=== PATIENT | female | born 1955 | race Caucasian/White ===

== ENCOUNTER 2016-08-25 11:26 | Day surgery (SDC) | payer BC ==
[2016-08-23 14:54] LABS: BASOPHILS 0.1 %; BASOPHILS ABSOLUTE 0.02 10/3/uL (0.0-0.16); EOSINOPHILS 1.1 %; EOSINOPHILS ABSOLUTE 0.15 10/3/uL (0.0-0.53); HEMATOCRIT 41.9 % (36.0-48.0); HEMOGLOBIN 13.8 g/dL (12.0-16.0); IMMATURE GRANULOCYTES 0.8 %; IMMATURE GRANULOCYTES ABSOLUTE 0.11 10/3/uL (0.0-0.11); LYMPHOCYTES 32.8 %; MANUAL DIFF NO %; MEAN CORPUS HGB CONC 32.9 g/dL (32.0-36.0); MEAN CORPUSCULAR HEMOGLOB 30.6 pg (26.0-34.0); MEAN CORPUSCULAR VOLUME 92.9 fL (80-100); MONOCYTES ABSOLUTE 0.81 10/3/uL (0.21-1.20); NEUTROPHILS 59.2 %; NEUTROPHILS ABSOLUTE 7.94 10/3/uL (2.02-8.40); PLATELET COUNT 220 10/3/uL (150-400); RBC DISTRIBUTION WIDTH 14.6 % (12.0-16.0); RED CELL COUNT 4.51 10/6/uL (4.0-5.6); WHITE BLOOD CELLS 13.4 10/3/uL (4.5-10.5)
[2016-08-23 15:09] LABS: A/G RATIO 0.7 (0.7-1.9); ALBUMIN 3.2 G/DL (3.5-5.0); BUN (BLOOD UREA NITROGEN) 13 MG/DL (6-23); CHLORIDE, SERUM 99 MMOL/L (96-112); CO2 (CARBON DIOXIDE) 31 MMOL/L (24-34); CREATININE 0.96 MG/DL (0.55-1.02); GFR AFRICAN AMERICAN 75 ML/MIN (>=60); GFR NON AFRICAN AMERICAN 64 ML/MIN (>=60); GLOBULIN 4.3 G/DL (2.5-4.1); POTASSIUM, SERUM 4.3 MMOL/L (3.5-5.3); SGOT(AST) 93 U/L (5-40); SGPT(ALT) 85 U/L (5-65); SODIUM, SERUM 137 MMOL/L (135-148); TOTAL BILIRUBIN 0.4 MG/DL (0-1.2); TOTAL PROTEIN 7.5 G/DL (6.0-8.5)
[2016-08-23 15:10] LABS: ALKALINE PHOSPHATASE 169 U/L (45-117); GLUCOSE, SERUM 349 MG/DL (60-99)
--- NOTE | ~2016-08-25 | PREOPHP ---
PreOp History and Physical [address] [address] NAME: MARIBEL WOODS : 57 [place]US : [place] [facility] [place] [id number] AGE: 61 ADM/REG DATE : MR#: [id number] REPORT SERV DATE: 08/25/16 DICTATED BY: VELMA RAMOS III DATE: 08/16/16 REPORT STATUS : Draft TRANSCRIBED BY: MODL DATE: 08/16/16 HISTORY OF PRESENT ILLNESS: This 61-year-old female comes to the operating room for laparoscopic cholecystectomy, possible laparotomy, symptomatic cholelithiasis and cholecystitis. The patient complains of intermittent episodes of epigastric and right upper quadrant abdominal pain. The pain has been associated with nausea and vomiting. The patient has gallstones, felt to have symptomatic cholelithiasis and cholecystitis. The patient comes to the operating room now for laparoscopic cholecystectomy, possible laparotomy. The patient has had symptoms for over one year. The symptoms have become progressively worse over the last several months. PAST MEDICAL HISTORY: 1. Hypertension. 2. Diabetes mellitus. 3. Depression. MEDICATIONS: None regular. PAST SURGICAL HISTORY: None. FAMILY HISTORY: Positive for diabetes and heart disease. SOCIAL HISTORY: No history of tobacco or alcohol use. ALLERGIES: NONE. REVIEW OF SYSTEMS: The patient complains of fatigue, nausea, and vomiting. Her 14-point review of systems was otherwise unremarkable. PHYSICAL EXAMINATION: GENERAL: This is an obese female, in no acute distress. She is alert and oriented x3. VITAL SIGNS: Blood pressure 134/75, pulse 105, and temp 99. HEENT: Unremarkable. Cranial nerves 2 through 12 were normal. LUNGS: Clear. CARDIAC: Normal. ABDOMEN: Obese, but soft and nontender. LABORATORY DATA: Gallbladder ultrasound shows gallstones and hepatic enlargement with diffuse fatty infiltration of the liver. ASSESSMENT: 1. A 61-year-old female with symptomatic cholelithiasis, cholecystitis, and recurrent episodes of biliary colic. 2. Hypertension. PreOp History and Physical [address] [address] NAME: MARIBEL WOODS : 57 [place]US : [place] [facility] [place]#: [id number] AGE: 61 ADM/REG DATE : MR#: [id number] REPORT SERV DATE: 08/25/16 DICTATED BY: VELMA RAMOS III DATE: 08/16/16 REPORT STATUS : Draft TRANSCRIBED BY: MODMacho DATE: 08/16/16 3. Diabetes mellitus. 4. Depression. 5. Obesity. 6. Hepatic steatosis on ultrasound. PLAN: The patient comes to the operating room now for laparoscopic cholecystectomy, possible laparotomy. This procedure, the risks, benefits, and alternatives, including, but not limited to the risk for bleeding, infection, common bile duct injury, bile leak, retained common bile duct stone, enterotomy, or injury to any abdominal structure, definite possible need for laparotomy, possible persistence of her symptoms unrelieved by surgery, positive postoperative diarrhea or incisional hernia, and unforeseen complications including deep venous thrombosis, pulmonary embolus, myocardial infarction, stroke, pneumonia, and , have been fully explained to the patient prior to surgery. The fact that this is a major operation with risk for major morbidity and mortality, and no guarantee for relief of her symptoms has been explained to her. The expected length of recovery with open laparoscopic procedures has been explained. The option of nonoperative management has been offered, but declined. The patient's questions have been answered. She understands the risks and agrees to surgery as planned. NONA/SUZE Velma Ramos III, M.D. / [id number]
--- NOTE | ~2016-08-25 | OP ---
Record Of [facility] [address] [place]. [address] NAME: MARIBEL WOODS : 57 [place]US : [place] [facility] [place]#: [id number] AGE: 61 ADM/REG DATE : 08/25/16 MR#: [id number] REPORT SERV DATE: 08/25/16 DICTATED BY: VELMA SMITH III DATE: 08/25/16 REPORT STATUS : Draft TRANSCRIBED BY: MODL DATE: 08/25/16 DATE OF PROCEDURE: 08/25/2016 PREOPERATIVE DIAGNOSIS: Symptomatic cholelithiasis and cholecystitis. POSTOPERATIVE DIAGNOSIS: Symptomatic cholelithiasis and cholecystitis. PROCEDURE: Laparoscopic cholecystectomy. SURGEON: Dr. Velma Smith. ANESTHESIA: General with intubation. COMPLICATIONS: None. ESTIMATED BLOOD LOSS: Less than 30 mL. SPECIMENS: Gallbladder. DRAINS: None. LAP AND SPONGE COUNT: Correct x3. BRIEF HISTORY: This 61-year-old female presented with evidence for symptomatic cholelithiasis and cholecystitis. It was felt that laparoscopic cholecystectomy, possible laparotomy, was indicated. This procedure, the risks, benefits, and alternatives, including but not limited to the risk for bleeding, infection, common bile duct injury, bile leak, retained common bile duct stone, enterotomy, or injury to any abdominal structure with the definite possible need for laparotomy, possible persistence of her symptoms unrelieved by surgery, positive postoperative diarrhea or incisional hernia, and unforeseen complications including deep venous thrombosis, pulmonary embolus, myocardial infarction, stroke, pneumonia, and , were fully and completely explained to the patient and family prior to surgery. The fact that this was a major operation with risk for major morbidity and mortality with no guarantee for relief of her symptoms were explained to them. The expected length of recovery of both open and laparoscopic procedures was explained. The patient and family had questions which were answered. They fully understood the risks and agreed to the surgery as planned. FINDINGS: The patient's gallbladder lazo were thickened, inflamed, and there were adhesions between the gallbladder and the omentum consistent with cholecystitis. The liver and remainder of the abdomen were otherwise unremarkable as far as we could determine through the laparoscope. DESCRIPTION OF PROCEDURE: After being appropriately identified and after discussing the risks of surgery with the patient and her family in the preoperative area, the patient was taken to the operating room and placed in the supine position on the operating room table. Record Of Operation [facility] [address] [place]. [address] NAME: MARIBEL WOODS : 57 STATUS : REG [facility] [place] PAT#: [id number] AGE: 61 ADM/REG DATE : 08/25/16 MR#: [id number] REPORT SERV DATE: 08/25/16 DICTATED BY: VELMA SMITH III DATE: 08/25/16 REPORT STATUS : Draft TRANSCRIBED BY: MODMacho DATE: 08/25/16 General anesthesia was administered. She was intubated without difficulty. The abdomen was prepped and draped sterilely in the usual fashion. After an appropriate "time-out" per [facility] standards, a small transverse incision was made below the umbilicus. The skin and fascia on either side was elevated with towel clips. A Veress needle was placed through the incision into the peritoneal cavity. Correct position of the needle in the peritoneal cavity was confirmed by the hanging drop test. The abdominal cavity was then insufflated to about 13 mmHg with carbon dioxide. Correct position of air in the peritoneal cavity was confirmed by palpation. The Veress needle was removed and replaced with 10 mm trocar. The laparoscope was placed through this. The patient was placed in the reverse Trendelenburg position and to her left. A second 10 mm trocar was placed just below the xiphoid process, to the right of the falciform ligament, under direct vision with the laparoscope. Two 5 mm trocars were placed along the right subcostal margin, one in the midaxillary line, the other in the midclavicular line. These were also placed under direct vision with the laparoscope. The upper abdomen was inspected. The gallbladder appeared to be chronically diseased. The gallbladder lazo were thickened and inflamed consistent chronic cholecystitis. The liver and remainder of the upper abdomen were otherwise unremarkable as far as we could determine through the laparoscope. The appropriate instruments were placed through the trocars. The gallbladder was grasped and the infundibulum of the gallbladder was retracted laterally and inferiorly so as to expose the triangle of Calot. Using careful sharp and blunt dissection, the cystic duct was carefully and meticulously defined proximally and distally. The cystic duct was fairly long. The junction of the cystic duct with the common bile duct was appreciated, but not skeletonized. The cystic artery was similarly defined proximally and distally. The fibrous and fatty tissue between these structures was divided so as to clearly identify the critical angle. Once these structures were clearly defined, the cystic duct was clipped using two clips on the common bile duct side and one on the gallbladder side, all placed as close to the gallbladder as possible, taking care not encroach upon or injure the common bile duct in any way. The cystic duct was then divided between these clips as close to the gallbladder as possible. We elected not to perform a cholangiogram because there was no preoperative or intraoperative evidence for biliary dilatation and because the patient's preoperative liver enzymes were normal and because her biliary anatomy was clearly defined. Again, the structure was not divided or clipped until the critical angle and triangle of Calot had been clearly identified. The cystic artery was then similarly clipped and divided as close to the gallbladder as possible. Using the spatula and the cautery, the gallbladder was carefully dissected from the liver bed. This went very well. Before the gallbladder was completely removed, the gallbladder bed and portal areas were irrigated numerous times with saline. The saline was aspirated dry. This process was repeated several times until hemostasis was meticulously and thoroughly assured in all areas. It was also assured that the clips in the portal areas were in good position and there was no extravasation of bile from any accessory bile duct. Once this was assured, the gallbladder was completely dissected away from the liver and placed in the Endopouch. The liver bed was elevated, irrigated, and inspected for meticulous and thorough hemostasis and for absence of any biliary extravasation and to be certain that the clips were in good position. Once this was assured, the gallbladder and Endopouch were brought out through the infraumbilical incision and placed in the laparoscope through the subxiphoid port. The fascia of the infraumbilical incision was closed with 0 Vicryl suture. The lateral two trocars were removed. These two lower trocar sites were inspected on the underside for hemostasis with the laparoscope. Once this was assured, the subxiphoid trocar was removed Record Of Operation [facility] [address] [place] [address] NAME: MARIBEL WOODS LUIS : 57 STATUS : REG [facility]#: [id number] AGE: 61 ADM/REG DATE : 08/25/16 MR#: [id number] REPORT SERV DATE: 08/25/16 DICTATED BY: VELMA SMITH III DATE: 08/25/16 REPORT STATUS : Draft TRANSCRIBED BY: SUZE DATE: 08/25/16 under direct vision with the laparoscope to assure hemostasis in this incision. The air was removed from the peritoneal cavity through this incision. The skin incisions were inspected for hemostasis, they were closed with running subcuticular 4-0 Monocryl stitches. They were injected with one-half percent Marcaine. Dressings were applied. Anesthesia was reversed and the patient was taken to the recovery room in stable condition. The patient tolerated the procedure well. Her family was informed of the results of surgery. The patient will be discharged later when she is stable, comfortable and tolerating liquids and able to void and ambulate. Her family was advised that she should remain on a liquid diet today and advance this as tolerated to a regular diet tomorrow. She should keep wounds clean and dry for 48 hours and that she should not drive for 3 to 4 days after surgery or while using narcotics or Phenergan. They were advised that she should resume her usual medications. She was given a prescription for a narcotic and Phenergan, which she was advised to not take while driving. She was asked to return to the office in two weeks for followup or sooner for nausea, vomiting, fever, chills, wound drainage, abdominal pain, weakness, or other problems prior to that time. It should be noted that the patient and family were advised that her blood sugar was very elevated preoperatively. She was strongly advised to follow up with her primary care physician regarding this. NONA/SUZE Velma Smith III, M.D. / [id number] CC: Smith Zhang III
[~2016-08-25 11:26] MED LIST: DITRO5 PO; EFFEX75 PO; HUMALOG SC; LANTUS SC; LISINOPRIL40 MG PO; NORV5 PO
[2016-08-25 18:03] LABS: HEMATOCRIT 40.7 % (36.0-48.0); HEMOGLOBIN 13.2 g/dL (12.0-16.0)
== END 2016-08-25 19:47 | disposition home or self-care (01) ==
LOC: SDC 11:26
PROVIDERS: Surgery
PROC: 0FT44ZZ Resection of Gallbladder, Percutaneous Endoscopic Approach (ICD-10-PCS; principal; 2016-08-25 13:30)
DX: K80.12 Calculus of gallbladder with acute and chronic cholecystitis without obstruction (principal); I10 Essential (primary) hypertension; E11.9 Type 2 diabetes mellitus without complications; F32.9 Major depressive disorder, single episode, unspecified; E66.9 Obesity, unspecified
CPT/HCPCS: 71020; 80053; 82962; 85014; 85018; 85025; 88304; 93005; A9270-GY; J0690; J2250; J2370; J2405; J2710; J3010

== ENCOUNTER 2016-08-27 10:30 | Emergency (ER) | payer BC ==
[2016-08-27 10:13] LABS: BASOPHILS 0.1 %; BASOPHILS ABSOLUTE 0.02 10/3/uL (0.0-0.16); EOSINOPHILS 0.3 %; EOSINOPHILS ABSOLUTE 0.04 10/3/uL (0.0-0.53); ER CBC TAT 0 Hrs 10 Mins; HEMOGLOBIN 12.7 g/dL (12.0-16.0); IMMATURE GRANULOCYTES 1.4 %; LYMPHOCYTES 17.2 %; MANUAL DIFF NO %; MEAN CORPUS HGB CONC 31.8 g/dL (32.0-36.0); MEAN CORPUSCULAR HEMOGLOB 30.2 pg (26.0-34.0); MEAN PLATELET VOLUME 11.1 fL (9.2-13.0); MONOCYTES 5.7 %; MONOCYTES ABSOLUTE 0.83 10/3/uL (0.21-1.20); NEUTROPHILS 75.3 %; NEUTROPHILS ABSOLUTE 10.92 10/3/uL (2.02-8.40); PLATELET COUNT 188 10/3/uL (150-400); RBC DISTRIBUTION WIDTH 14.8 % (12.0-16.0); RED CELL COUNT 4.21 10/6/uL (4.0-5.6); WHITE BLOOD CELLS 14.5 10/3/uL (4.5-10.5)
[2016-08-27 10:16] LABS: INTERNATIONAL NORMAL RATI 1.1 UNITS (-); PROTIME (NOT ORD) 14.1 SEC (12.0-14.5)
[2016-08-27 10:31] LABS: BUN (BLOOD UREA NITROGEN) 11 MG/DL (6-23); CALCIUM, SERUM 8.9 MG/DL (8.5-10.4); CHEST PAIN PROFILE TAT 0 Hrs 28 Mins; CHLORIDE, SERUM 98 MMOL/L (96-112); CO2 (CARBON DIOXIDE) 32 MMOL/L (24-34); CREATININE 0.69 MG/DL (0.55-1.02); GFR AFRICAN AMERICAN 110 ML/MIN (>=60); GFR NON AFRICAN AMERICAN 95 ML/MIN (>=60); GLUCOSE, SERUM 290 MG/DL (60-99); POTASSIUM, SERUM 4.6 MMOL/L (3.5-5.3); SODIUM, SERUM 135 MMOL/L (135-148); TROPONIN I 0.11 NG/ML (<0.05)
[2016-08-27 14:05] LABS: DIRECT BILIRUBIN 0.1 MG/DL (0.0-0.4); INDIRECT BILIRUBIN(NOT ORDER) 0.3 MG/DL (0.1-0.9); SGOT(AST) 41 U/L (5-40); SGPT(ALT) 54 U/L (5-65); TOTAL BILIRUBIN 0.4 MG/DL (0-1.2); TOTAL PROTEIN 7.4 G/DL (6.0-8.5)
[2016-08-27 14:06] LABS: ALKALINE PHOSPHATASE 127 U/L (45-117)
== END 2016-08-27 17:11 | disposition home or self-care (01) ==
LOC: ER 10:30
PROVIDERS: Emergency Medicine
DX: R06.02 Shortness of breath (principal); R10.9 Unspecified abdominal pain; I10 Essential (primary) hypertension; F32.9 Major depressive disorder, single episode, unspecified; E11.9 Type 2 diabetes mellitus without complications; Z79.4 Long term (current) use of insulin; Z79.899 Other long term (current) drug therapy
CPT/HCPCS: 71010; 71275; 80048; 80076; 82962; 83735; 83880; 84484; 85025; 85610; 85730; 93005; 96374; 99285; A9270-GY; J2405; Q9967